=== PATIENT | female | born 1975 | race Caucasian/White ===

== ENCOUNTER 2022-08-21 06:23 | Day surgery (SDC) | payer OTHER ==
[2022-08-18 09:58] LABS: COVID AG,FIA SOURCE NASAL SWAB
[~2022-08-21] VITALS: Ht 167.6 cm; Wt 76.3 kg
[~2022-08-21 06:23] MED LIST: NO MEDS
[2022-08-21] MEDS ORDERED: PROPOFOL 1% 20 ML VIAL IVP ONE (06:24)
[2022-08-21] MEDS ORDERED: LIDOCAINE/PF 2% 5 ML VIAL IM ONE (06:24)
[2022-08-21] MEDS ORDERED: SODIUM CHLORIDE 0.9% 1,000 ML IV ONE (07:00)
[2022-08-21] MEDS ORDERED: SODIUM CHLORIDE 0.9% 1,000 ML ONE (07:01)
== END 2022-08-21 09:40 | disposition home or self-care (01) ==
LOC: SURGERY 06:23
PROVIDERS: ATTEND Internal Medicine Gastroenterology
DX: K20.90 Esophagitis, unspecified without bleeding (principal); K22.2 Esophageal obstruction; K44.9 Diaphragmatic hernia without obstruction or gangrene; J45.909 Unspecified asthma, uncomplicated; K29.70 Gastritis, unspecified, without bleeding; K21.9 Gastro-esophageal reflux disease without esophagitis; Z20.822 Contact with and (suspected) exposure to COVID-19; Z98.890 Other specified postprocedural states
CPT/HCPCS: 87426; 84703; 43249; 88305; 88312; 88313; 43239; C9803; C1769; J2704; J3490; J7030